=== PATIENT | female | born 1990 | race Caucasian/White ===

== ENCOUNTER 2018-05-18 16:29 | Emergency (ER) | payer BC ==
[2018-05-18 16:58] VITALS: BP 150/85
--- NOTE | 2018-05-18 17:33 | ED ---
Throat Pain/Nasal Congestion - HPI Summary HPI Summary: 27 yr old female with a week of sore throat. She has had pain in the throat over past week, worse with swallowing, mild hoarse voice. Pain is moderate. Not associated with fever or chills. No drooling, no stridor. No runny nose or coughing. - History of Current Complaint Chief Complaint: UCGeneralIllness Time Seen by Provider: 05/18/18 17:13 - Allergies/Home Medications Allergies/Adverse Reactions: Allergies Allergy/AdvReac Type Severity Reaction Status Date / Time No Known Allergies Allergy Verified 05/18/18 16:58 Home Medications: Home Medications Levothyroxine TAB* [Synthroid TAB*] 112 mcg PO DAILY 05/18/18 [History Confirmed 05/18/18] Oral Contraceptive DAILY 05/18/18 [History] PMH/Surg Hx/FS Hx/Imm Hx Endocrine/Hematology History: Reports: Hx Thyroid Disease Infectious Disease History: No Infectious Disease History: Denies: Traveled Outside the [place] in Last 30 Days - Family History Known Family History: Positive: None - Social History Occupation: Employed Full-time Alcohol Use: Rare Substance Use Type: Reports: None Smoking Status (MU): Never Smoked Tobacco Review of Systems Constitutional: Negative Positive: Sore Throat All Other Systems Reviewed And Are Negative: Yes Physical Exam Triage Information Reviewed: Yes Vital Signs On Initial Exam: Initial Vitals Temp Pulse Resp BP Pulse Ox 99.2 F 91 16 150/85 100 05/18/18 16:54 05/18/18 16:54 05/18/18 16:54 05/18/18 16:54 05/18/18 16:54 Vital Signs Reviewed: Yes Appearance: Positive: Well-Appearing, No Pain Distress Skin: Positive: Warm, Skin Color Reflects Adequate Perfusion Head/Face: Positive: Normal Head/Face Inspection Eyes: Positive: EOMI ENT: Positive: Normal ENT inspection, Pharyngeal erythema. Negative: Nasal congestion, Tonsillar swelling, Tonsillar exudate Neck: Positive: Nontender, No Lymphadenopathy Respiratory/Lung Sounds: Positive: Clear to Auscultation, Breath Sounds Present Cardiovascular: Positive: RRR. Negative: Murmur Abdomen Description: Negative: Distended Musculoskeletal: Positive: Strength/ROM Intact Neurological: Positive: Sensory/Motor Intact, Alert, Oriented to Person Place, Time, CN Intact II-III, Normal Gait, Speech Normal Psychiatric: Positive: Normal, Affect/Mood Appropriate - [place] Coma Scale Best Eye Response: 4 - Spontaneous Best Motor Response: 6 - Obeys Commands Best Verbal Response: 5 - Oriented Coma Scale Total: 15 Diagnostics - Vital Signs Vital Signs Temp Pulse Resp BP Pulse Ox 05/18/18 16:54 99.2 F 91 16 150/85 100 - Laboratory Lab Results: Lab Results 05/18/18 Range/Units 17:02 Group A Strep Rapid Negative (Negative) Lab Statement: Any lab studies that have been ordered have been reviewed, and results considered in the medical decision making process. EENT Course/Dx - Course Course Of Treatment: 27 yr old with negative rapid strep neg. She will use tylenol, motrin, and salt water gargles. - Diagnoses Provider Diagnoses: Sore throat, Hypertension Discharge - Sign-Out/Discharge Documenting (check all that apply): Patient Departure All imaging exams completed and their final reports reviewed: No Studies - Discharge Plan Condition: Good Disposition: HOME Patient Education Materials: Strep Throat (ED), Hypertension (ED) Referrals: No Primary Care Phys,NOPCP [Primary Care Provider] - Additional Instructions: follow up with your primary doctor in [place] in the next few days for a blood pressure recheck. - Billing Disposition and Condition Condition: GOOD Disposition: Home
== END 2018-05-18 17:40 | disposition home or self-care (01) ==
LOC: UCCORT 16:29
DX: J02.9 Acute pharyngitis, unspecified (principal); I10 Essential (primary) hypertension; E07.9 Disorder of thyroid, unspecified
CPT/HCPCS: 87651; 99201; G0463